=== PATIENT | male | born 1980 | race Caucasian/White ===

== ENCOUNTER → 2021-08-29 08:18 | Outpatient (BNVA) | payer OTHER, SELFPAY | PROVIDERS: PCP Internal Medicine; Visit Provider Internal Medicine | DX: S64.12XA Injury of median nerve at wrist and hand level of left arm, initial encounter (principal); X50.0XXA Overexertion from strenuous movement or load, initial encounter | CPT/HCPCS: 29085; 99213 ==

== ENCOUNTER → 2021-09-03 07:34 | Outpatient (BNVA) | payer OTHER, SELFPAY | PROVIDERS: PCP Internal Medicine; Visit Provider Internal Medicine | DX: S60.222A Contusion of left hand, initial encounter (principal); S64.8X2A Injury of other nerves at wrist and hand level of left arm, initial encounter; X58.XXXA Exposure to other specified factors, initial encounter | CPT/HCPCS: 73130; 99214 ==

== ENCOUNTER → 2021-09-12 08:10 | Outpatient (BNVA) | payer OTHER, SELFPAY | PROVIDERS: PCP Internal Medicine; Visit Provider Internal Medicine | DX: S64.12XA Injury of median nerve at wrist and hand level of left arm, initial encounter (principal); X58.XXXA Exposure to other specified factors, initial encounter | CPT/HCPCS: 99213 ==

== ENCOUNTER 2022-11-13 09:49 | Emergency (ER) | payer OTHER, SELFPAY ==
--- NOTE | 2022-11-13 09:57 | ECG_ITS ---
Test Reason : cp Blood Pressure : / mmHG Vent. Rate : 084 BPM Atrial Rate : 084 BPM P-R Int : 156 ms QRS Dur : 086 ms QT Int : 354 ms P-R-T Axes : 068 -07 026 degrees QTc Int : 418 ms Normal sinus rhythm Normal ECG No previous ECGs available Referred By: Kavita Haq Electronically Signed By:Felipe Emmanuel
[2022-11-13 10:00] VITALS: BP 159/92; BP 165/101; PULSE 87; PULSE 88; RESP 20; TEMP 36.6; O2SAT 96; O2SAT 98; BMI 52.0
--- NOTE | 2022-11-13 10:01 | ED_ITS ---
HPI - Dizziness General Chief Complaint: Dizziness Stated Complaint: DIZZY W/L CHEST PAIN, RESOLVED,ASA GIVEN PER EMS Source: patient and EMS Mode of arrival: EMS Limitations: no limitations History of Present Illness HPI Narrative: 42 yo male with history of morbid obesity presents to the ER from work via EMS for evaluation of an episodes of lightheaded and dizziness that lasted about 1 hour along with a 5-6 minute episode of left sided chest pain. All of his symptoms are now resolved. 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 He went to the bathroom, had a bowel movement and then went back to work. Dizziness persisted. He states he was working but not exerting himself, when he felt sharp left sided chest pain, nonradiating. He went to the nurse at his work and sat down. He was diaphoretic, denies SOB. He states after about 5-6 minutes the pain & dizziness went away. EMS was called and he was given 324 ASA. He reports similar episode of dizziness and chest pain over the weekend. Self resolved, he was home doing nothing when it came and went. He is a nonsmoker with no known medical problems. no drugs or ETOH. His father of a massive UT at age 49. MD elicited complaint: dizziness, lightheadedness and other (chest pain) Onset (ago): hour(s) Timing: sudden onset Severity: moderate Description: lightheadedness History of similar symptoms: Yes Exacerbating factors: change in body position Relieving factors: rest Associated symptoms: diaphoresis and other (chest pain) Stroke scale total: 0 Related Data Allergies Allergy/AdvReac Type Severity Reaction Status Date / Time Unable to Assess Allergy Unverified 11/13/22 09:57 Review of Systems Review of Systems: Yes all other systems are reviewed and are negative [facility] Social History Social History Alcohol intake: never Smoked in Last 30 Days: No Use of substances other than those prescribed or required for medical reasons: No Advance Directives: No Advance Directives Information Provided: No Physical Exam Vital Signs: Vital Signs: Last Vital Signs Temp 98 F 11/13/22 10:00 Pulse 95 11/13/22 10:55 Resp 18 11/13/22 10:55 BP 153/96 H 11/13/22 10:54 Pulse Ox 99 11/13/22 10:55 O2 Del Method Room Air 11/13/22 10:55 BMI result Body Mass Index 52.0 Appearance: Alert. Oriented X3. No acute distress. Head: normocephalic, atraumatic. Eyes: Pupils equal, round and reactive to light. ENT: Pharynx normal. No tonsillar swelling or exudate. Neck: Normal inspection. Neck supple. CVS: Normal heart rate and rhythm. Pulses normal. Respiratory: No respiratory distress. Breath sounds normal. Abdomen: Obese, Soft and nontender. +BS x4 Skin: Skin warm and dry. Normal skin color. Normal skin turgor. No rashes. Extremities: trace lower extremity edema. No joint swelling. Neuro/psych: Oriented X 3. No motor deficit. No sensory deficit. CN II-XII intact. Normal speech and cognition. Normal finger to nose and heel to childers bilaterally. No visual field deficits. Medical Decision Making Medical Decision Making [facility] Narrative: 42 yo male with history of morbid obesity (BMI 52) and significant family cardiac history presents to the ER for evaluation of transient dizziness and left sided chest pain while at work today. Symptoms now resolved. VSS on arrival. EKG without STEMI or significant ischemic changes. Troponin negative x2. Remains symptom free. Stable for d/c home with outpatient follow up. Differential Diagnosis Differential Diagnoses: The differential diagnosis associated with the presentation includes TIA, ACS, PE, anxiety attack, angina, dehydration, presyncope, hypoglycemia, anemia, metabolic derangement, vertigo Lab Data [facility] Lab Attestation statement: I reviewed the patient's lab results. 11/13/22 10:14 11/13/22 10:14 Labs: Lab Results 11/13/22 11/13/22 11/13/22 Range/Units 10:13 10:13 10:13 WBC (4.8-10.8) X10*3/uL RBC (4.60-5.80) X10*6/uL Hgb (14.0-18.0) g/dl Hct (42.0-52.0) % MCV (80.0-98.0) fL MCH (27.0-33.0) pg MCHC (31.0-36.0) g/dl RDW (11.0-16.0) % Plt Count (160-400) X10*3/uL MPV (9.4-12.4) fL Immature Gran % (Auto) (0.0-0.4) % Neut % (Auto) (45-73) % Lymph % (Auto) (20-40) % [place] % (Auto) (2-11) % Eos % (Auto) (0-4) % Baso % (Auto) (0-2) % Lymph # (Auto) (1.2-4.9) X10*3/uL [place] # (Auto) (0.1-1.2) X10*3/uL Eos # (Auto) (0.0-0.4) X10*3/uL Baso # (Auto) (0.0-0.2) X10*3/uL Abs Immat Gran (auto) (0.00-0.03) X10*3/uL Absolute Neuts (auto) (2.0-8.3) x10*3/uL Absolute Nucleated RBC (0.0-0.012) X10*3/uL Nucleated RBC % (auto) (0.0-0.2) /100WBC PT 12.3 (10.0-13.1) SEC INR 1.1 (0.9-1.1) APTT 33.4 (26.0-36.4) SEC Sodium (135-145) mmol/L Potassium (3.3-5.1) mmol/L Chloride (96-108) mmol/L Carbon Dioxide (22-29) mmol/L Anion Gap (12-20) BUN (9-16) mg/dL Creatinine (0.5-1.4) mg/dL Estim Creat Clear Calc Estimated GFR Random Glucose (60-115) mg/dL Calcium (8.4-10.2) mg/dL Magnesium (1.6-2.6) mg/dL Total Bilirubin (0.0-1.0) mg/dL Direct Bilirubin (0.0-0.5) mg/dL AST (5-37) U/L ALT (0-40) U/L Alkaline Phosphatase (39-117) U/L Troponin I High Sens (<3.5-35.0) ng/L B-Natriuretic Peptide 22 (<100) pg/mL Total Protein (6.5-8.0) g/dL Albumin (3.5-5.0) g/dL TSH 0.01 L (0.32-4.0) uIU/mL Free T4 1.27 (0.71-1.85) ng/dL 11/13/22 11/13/22 11/13/22 Range/Units 10:14 10:14 10:14 WBC 6.9 (4.8-10.8) X10*3/uL RBC 5.39 (4.60-5.80) X10*6/uL Hgb 15.2 (14.0-18.0) g/dl Hct 45.4 (42.0-52.0) % MCV 84.2 (80.0-98.0) fL MCH 28.2 (27.0-33.0) pg MCHC 33.5 (31.0-36.0) g/dl RDW 13.0 (11.0-16.0) % Plt Count 423 H (160-400) X10*3/uL MPV 9.4 (9.4-12.4) fL Immature Gran % (Auto) 0.1 (0.0-0.4) % Neut % (Auto) 67.0 (45-73) % Lymph % (Auto) 23.0 (20-40) % [place] % (Auto) 6.2 (2-11) % Eos % (Auto) 3.0 (0-4) % Baso % (Auto) 0.7 (0-2) % Lymph # (Auto) 1.6 (1.2-4.9) X10*3/uL [place] # (Auto) 0.4 (0.1-1.2) X10*3/uL Eos # (Auto) 0.2 (0.0-0.4) X10*3/uL Baso # (Auto) 0.1 (0.0-0.2) X10*3/uL Abs Immat Gran (auto) 0.01 (0.00-0.03) X10*3/uL Absolute Neuts (auto) 4.6 (2.0-8.3) x10*3/uL Absolute Nucleated RBC 0.000 (0.0-0.012) X10*3/uL Nucleated RBC % (auto) 0.0 (0.0-0.2) /100WBC PT (10.0-13.1) SEC INR (0.9-1.1) APTT (26.0-36.4) SEC Sodium 140 (135-145) mmol/L Potassium 4.5 (3.3-5.1) mmol/L Chloride 105 (96-108) mmol/L Carbon Dioxide 26 (22-29) mmol/L Anion Gap 14 (12-20) BUN 14 (9-16) mg/dL Creatinine 0.79 (0.5-1.4) mg/dL Estim Creat Clear Calc 173.9 Estimated GFR > 60 Random Glucose 101 (60-115) mg/dL Calcium 9.3 (8.4-10.2) mg/dL Magnesium 2.1 (1.6-2.6) mg/dL Total Bilirubin 0.7 (0.0-1.0) mg/dL Direct Bilirubin 0.3 (0.0-0.5) mg/dL AST 15 (5-37) U/L ALT 12 (0-40) U/L Alkaline Phosphatase 77 (39-117) U/L Troponin I High Sens < 2.7 (<3.5-35.0) ng/L B-Natriuretic Peptide (<100) pg/mL Total Protein 7.2 (6.5-8.0) g/dL Albumin 4.1 (3.5-5.0) g/dL TSH (0.32-4.0) uIU/mL Free T4 (0.71-1.85) ng/dL 11/13/22 Range/Units 12:21 WBC (4.8-10.8) X10*3/uL RBC (4.60-5.80) X10*6/uL Hgb (14.0-18.0) g/dl Hct (42.0-52.0) % MCV (80.0-98.0) fL MCH (27.0-33.0) pg MCHC (31.0-36.0) g/dl RDW (11.0-16.0) % Plt Count (160-400) X10*3/uL MPV (9.4-12.4) fL Immature Gran % (Auto) (0.0-0.4) % Neut % (Auto) (45-73) % Lymph % (Auto) (20-40) % [place] % (Auto) (2-11) % Eos % (Auto) (0-4) % Baso % (Auto) (0-2) % Lymph # (Auto) (1.2-4.9) X10*3/uL [place] # (Auto) (0.1-1.2) X10*3/uL Eos # (Auto) (0.0-0.4) X10*3/uL Baso # (Auto) (0.0-0.2) X10*3/uL Abs Immat Gran (auto) (0.00-0.03) X10*3/uL Absolute Neuts (auto) (2.0-8.3) x10*3/uL Absolute Nucleated RBC (0.0-0.012) X10*3/uL Nucleated RBC % (auto) (0.0-0.2) /100WBC PT (10.0-13.1) SEC INR (0.9-1.1) APTT (26.0-36.4) SEC Sodium (135-145) mmol/L Potassium (3.3-5.1) mmol/L Chloride (96-108) mmol/L Carbon Dioxide (22-29) mmol/L Anion Gap (12-20) BUN (9-16) mg/dL Creatinine (0.5-1.4) mg/dL Estim Creat Clear Calc Estimated GFR Random Glucose (60-115) mg/dL Calcium (8.4-10.2) mg/dL Magnesium (1.6-2.6) mg/dL Total Bilirubin (0.0-1.0) mg/dL Direct Bilirubin (0.0-0.5) mg/dL AST (5-37) U/L ALT (0-40) U/L Alkaline Phosphatase (39-117) U/L Troponin I High Sens < 2.7 (<3.5-35.0) ng/L B-Natriuretic Peptide (<100) pg/mL Total Protein (6.5-8.0) g/dL Albumin (3.5-5.0) g/dL TSH (0.32-4.0) uIU/mL Free T4 (0.71-1.85) ng/dL Independent Interpretation I performed an independent interpretation of an: EKG Interpretation: EKG with normal sinus rhythm, HR 84 bpm, isolated T wave inversion in lead III only, no ST segment elevations or depressions Independent Historian Clinical information obtained from an independent historian. History obtained from or confirmed by: EMS Prescription Management I considered prescription management with: Pain Medication Chronic Conditions Patient?s care impacted by: Other (morbid obesity) Scores Heart Score History: -0- slightly suspicious ECG: -0- normal Age: -0- < or = 45 Risk factory: -1- 1 or 2 risk factors Troponin: -0- < or = normal limit Score: 1 Risk: 1.7% Critical Care Time Critical Care Time Critical Care Time: No Discharge Plan Discharge Clinical Impression: Dizziness, Chest pain Patient Disposition: Home, Self-Care Instructions: Chest Pain (DC), Dizziness (ED) Additional Instructions: Your lab workup, chest x-ray and EKG today were unremarkable. Recommend following up with Cardiology for further evaluation and treatment - name and number below If you develop new or worsening symptoms call 911 or come back to the ER for further evaluation. Referrals: [facility] Cardiovascular Services [Provider Group] (chest pain, obese, +family history) Stand Alone Forms: Work/School Release
[2022-11-13 10:18] LABS: MANUAL DIFF FLAG NO
[2022-11-13 10:28] LABS: Basophils Absolute Auto 0.1 X10*3/uL (0.0-0.2); Basophils Percent Auto 0.7 % (0-2); Eosinophils Absolute Auto 0.2 X10*3/uL (0.0-0.4); Hematocrit 45.4 % (42.0-52.0); Hemoglobin 15.2 g/dl (14.0-18.0); Imm Gran Abs Auto 0.01 X10*3/uL (0.00-0.03); Imm Gran Pct Auto 0.1 % (0.0-0.4); Lymphocytes Absolute Auto 1.6 X10*3/uL (1.2-4.9); Mean Corpuscular HGB Conc 33.5 g/dl (31.0-36.0); Mean Corpuscular Hemoglobin 28.2 pg (27.0-33.0); Mean Corpuscular Volume 84.2 fL (80.0-98.0); Mean Platelet Volume 9.4 fL (9.4-12.4); Monocytes Absolute Auto 0.4 X10*3/uL (0.1-1.2); Monocytes Percent Auto 6.2 % (2-11); Neutrophils Absolute Auto 4.6 x10*3/uL (2.0-8.3); Platelet Count 423 X10*3/uL (160-400); Red Blood Count 5.39 X10*6/uL (4.60-5.80); White Blood Count 6.9 X10*3/uL (4.8-10.8)
[2022-11-13 10:32] LABS: INTERNATIONAL NORM RATIO 1.1 (0.9-1.1); Prothrombin Time 12.3 SEC (10.0-13.1)
[2022-11-13 10:35] LABS: Partial Thromboplastin Time 33.4 SEC (26.0-36.4)
[2022-11-13 10:49] LABS: Alanine Aminotransferase 12 U/L (0-40); Albumin Level 4.1 g/dL (3.5-5.0); Alkaline Phosphatase 77 U/L (39-117); Anion Gap 14 (12-20); Aspartate Amino Transferase 15 U/L (5-37); Bilirubin Direct 0.3 mg/dL (0.0-0.5); Bilirubin Total 0.7 mg/dL (0.0-1.0); Blood Urea Nitrogen 14 mg/dL (9-16); Calcium 9.3 mg/dL (8.4-10.2); Carbon Dioxide 26 mmol/L (22-29); Chloride 105 mmol/L (96-108); Creatinine Clr Calc Pharmacy 173.9; Estimated Glomerular Filt Rate > 60; Glucose Random 101 mg/dL (60-115); Magnesium 2.1 mg/dL (1.6-2.6); Potassium 4.5 mmol/L (3.3-5.1); Sodium 140 mmol/L (135-145); Total Protein 7.2 g/dL (6.5-8.0)
[2022-11-13 10:49] LABS: B Type Natriuretic Peptide 22 pg/mL (<100)
[2022-11-13 10:51] LABS: Troponin-I High Sensitivity < 2.7 ng/L (<3.5-35.0)
[2022-11-13 10:53] VITALS: BP 130/79; PULSE 74
[2022-11-13 10:54] VITALS: BP 148/90; BP 153/96; PULSE 75; PULSE 85
[2022-11-13 10:55] VITALS: PULSE 95; RESP 18; O2SAT 99
[2022-11-13 11:05] LABS: TSH reflex Free T4 0.01 uIU/mL (0.32-4.0)
[2022-11-13 11:42] LABS: Free T4 (Free Thyroxine) 1.27 ng/dL (0.71-1.85)
--- NOTE | 2022-11-13 11:42 | PC.NURSE ---
Patient resting on stretcher, no complaints at this time. Patient is alert and oriented answering all questions appropriately. Patient passed swallow screen without issue.
[2022-11-13 12:53] LABS: Troponin-I High Sensitivity < 2.7 ng/L (<3.5-35.0)
[2022-11-13 14:48] VITALS: BP 135/78; PULSE 80; RESP 20; O2SAT 99
== END 2022-11-13 14:50 | disposition home or self-care (01) ==
PROVIDERS: Physician Assistant; Emergency Provider Emergency Medicine
DX: R42 Dizziness and giddiness (principal); R07.9 Chest pain, unspecified; R60.0 Localized edema; E66.9 Obesity, unspecified; Z68.43 Body mass index [BMI] 50.0-59.9, adult
CPT/HCPCS: 36415; 80048; 80076; 83735; 83880; 84439; 84443; 84484; 85025; 85610; 85730; 93005; 99283; 99284

== ENCOUNTER 2023-04-07 12:14 | Outpatient (AMB) | payer OTHER, SELFPAY ==
--- NOTE | 2023-04-07 12:33 | MHC.OFFVIS ---
Intake Vital Signs 04/07/23 12:34 Height 5 ft 8 in Weight 321 lb 13.998 oz BMI 48.9 BP 130/80 Blood Pressure Location Lt brachial Position Sitting Pulse 108 H Intake Visit Reasons: [facility] ED/DIZZINESS Intake Note: NPV Receptionist Required: No Accompanied by: Self / Same As Patient Allergies No Known Allergies Allergy (Verified 04/07/23 12:37) Medication List - Last Reconciled 04/07/23 by Den Nava MD No Known Home Meds HPI HPI Comments History of Present Illness Details Vasu is here for consultation regarding chest pain and dizziness. Few months back, he had a ER visit for the same. Apparently was working at [employer] as usual of sudden developed discomfort in the substernal area/left chest. That last for few minutes. Just around the same time he also felt dizzy. No clear syncopal episodes. He was brought to the emergency room, had troponins done which were unremarkable then he was discharged home. He states he has been fine since. No known coronary disease, myocardial infarction or any other cardiac issues in the past. He is quite overweight and states that he has been this way for a long time. Nonsmoker. States there is a family history of cardiac issues in father had a heart attack in his 40s. Hence there is a concern for cardiac issues. However, after the initial episode when he came to the ER has not had any recurrent problems. He states he can pretty much do anything and does not get chest pains. COUNTS INCLUDE 234 BEDS AT THE [facility] Surgical History (Updated 04/07/23 @ 12:37 by Annette Gamino) No pertinent past surgical history Family History (Updated 04/07/23 @ 12:38 by Annette Gamino) Father Heart attack Mother No problems noted. Social History Alcohol intake: never Review of Systems Const Denies weakness ENT Denies dizziness Card Denies chest pain, Denies chest pain with activity, Denies syncope, Denies rapid heart rate, Denies pedal edema, Denies edema, Denies leg edema, Denies lightheadedness, Denies palpitations, Denies dyspnea, Denies dyspnea on exertion and Denies orthopnea Resp Denies cough, Denies dyspnea and Denies dyspnea on exertion GI Denies hematochezia and Denies change in stool character Musc Denies abnormal gait, Denies muscle cramps, Denies muscle weakness, Denies numbness, Denies radiating pain into limb and Denies tingling Neuro Denies abnormal gait, Denies dizziness, Denies syncope, Denies numbness, Denies tingling and Denies weakness Endo Denies palpitations Physical Exam Vital Signs: Last Vital Signs Pulse 108 H 04/07/23 12:34 BP 130/80 04/07/23 12:34 BMI result Body Mass Index 48.9 Const General: comfortable and no acute distress Orientation/consciousness: patient oriented x3 HEENT Other: Unremarkable Head: Yes normal to inspection Neck Neck: Yes normal visual inspection Chest Chest palpation & inspection: normal inspection of the chest Resp Auscultation: clear to auscultation bilaterally Cardio Palpation: normal PMI Heart sounds: S1 normal heart sound present, S2 normal heart sound present, no gallops, no murmurs and no rubs GI Palpation (GI): Soft to palpation Back/Spine/Pelvis Other: unremarkable Skin General skin exam: no rashes or lesions noted Neuro General: patient oriented x3 Extrem General: Yes normal to inspection Psych Mental Status: mental status grossly normal Assessment & Plan Assessment & Plan (1) Precordial chest pain: Code(s): R07.2 - Precordial pain (2) Dizziness: Code(s): R42 - Dizziness and giddiness Plan EKG from ER visit shows sinus rhythm at 84/Min; no significant ST-T changes and otherwise unremarkable. Normal ID and corrected QT. High sensitivity troponins are negative x2. Cardiac BNP is within normal limits. Uncertain etiology for his symptoms. Due to strong family history as well as patient himself being markedly overweight, ill investigate further. We can get an echocardiogram and coronary CTA. Based on findings, we will plan further care. Discussed with patient and he agrees. Orders: Orders CA echo transthoracic complete Today R07.2 - Precordial pain CT Cardiac Coronary Angio Today R07.2 - Precordial pain Basic Metabolic Panel Today R07.2 - Precordial pain Coding Level of Care Code New Pt Level 4 (75609) Diagnoses Precordial chest pain R07.2 Dizziness R42
[2023-04-07 12:34] VITALS: BP 130/80; PULSE 108; BMI 48.9
== END 2023-04-07 12:53 | disposition home or self-care (01) ==
PROVIDERS: Visit Provider Internal Medicine
DX: R07.2 Precordial pain (principal); R42 Dizziness and giddiness
CPT/HCPCS: 99204

== ENCOUNTER → 2023-04-07 12:14 | Outpatient (BNVA) | payer OTHER, SELFPAY | PROVIDERS: Visit Provider Internal Medicine ==